=== PATIENT | male | born 1960 | race Caucasian/White ===

== ENCOUNTER 2021-04-02 16:51 | Emergency (ER) | payer OTHER, SELFPAY ==
[2021-04-02] VITALS (7 sets, daily range): BP systolic 122–131; BP diastolic 64–76; PULSE 70–95; RESP 17–20; TEMP 36.4; O2SAT 92–95; BMI 29.0
--- NOTE | 2021-04-02 17:01 | EKG12_ITS ---
Test Reason : CP Blood Pressure : / mmHG Vent. Rate : 090 BPM Atrial Rate : 090 BPM P-R Int : 140 ms QRS Dur : 098 ms QT Int : 348 ms P-R-T Axes : 029 086 034 degrees QTc Int : 425 ms Normal sinus rhythm Inferior infarct , age undetermined , cannot be excluded Poor R wave progression Abnormal ECG Confirmed by TRAMAINE OLIVO, AYAH ([id number]), editor managing newspaper [employer] ([id number]) on 04/04/2021 1:24:27 PM Referred By: TAM Confirmed By:AYAH REDD MD
[2021-04-02 17:12] LABS: Absolute Lymphocyte Count 1.01 X10^3/uL (0.83-4.51); Absolute Neutrophil Count 6.3 X10^3/uL (2.0-7.7); Basophil# 0.05 X10^3/uL; Basophil% 0.6 % (0-1); Eosinophil# 0.09 X10^3/uL; Eosinophils% 1.1 % (0-5); Hematocrit 47.8 % (40-54); Hemoglobin 15.6 g/dL (13.0-16.5); Lymphocyte # 1.01 X10^3/ul (0.83-4.51); Lymphocyte % 11.9 % (19-41); Mean Corp Hgb Conc 32.6 g/dL (32-36); Mean Corpuscular Hgb 30.5 pg (27.0-32.0); Mean Corpuscular Volume 93.5 fL (80-94); Mean Platelet Vol. 9.3 fl (6.2-12.0); Monocyte# 0.92 X10^3/uL; Monocyte% 10.9 % (0-10); NRBC Flagged by Analyzer 0 % (0-5); Neutrophil # 6.33 X10^3/uL (2.7-7.7); Neutrophil % 74.7 % (47-70); Platelet Count 188 K/mm3 (150-450); RBC Distribution Width CV 13.8 % (11.6-14.6); Red Blood Count 5.11 M/mm3 (4.6-6.2); White Blood Count 8.5 K/mm3 (4.4-11.0)
--- NOTE | 2021-04-02 17:15 | RAD_ITS ---
STUDY: X-RAY CHEST REASON FOR EXAM: Male, 60 years old. chest pain TECHNIQUE: AP COMPARISON: None. FINDINGS: There are interstitial fibrotic changes of the lung bases. No airspace consolidation. There is no demonstrated pleural abnormality. Normal size heart. Normal mediastinum and jil. Normal visualized pulmonary arteries. There is atherosclerotic calcification of the aortic arch with tortuosity. No acute bony process. There is no demonstrated abnormality of the visualized soft tissue structures of the upper abdomen. RAD/Chest 1 View (Portable) IMPRESSION: Nonacute portable x-ray examination of the chest. Electronically Signed: Griffin Chopra MD ([place]) at 17:25 EDT , Service support ,
[2021-04-02 17:29] LABS: Anion Gap 6 (5-15); BUN 20 mg/dL (7-18); Calcium,Total 9.3 mg/dL (8.5-10.1); Chloride 105 mmol/L (98-107); Creatinine, Serum 1.11 mg/dL (0.70-1.30); EST Glomerular Filtration Rate 71 mL/min (>60); Est Glom Filt Rate - Afr Amer 86 mL/min (>60); Estimated Creatinine Clearance 63.07 ml/min; Glucose 177 mg/dL (74-106); Potassium 3.6 mmol/L (3.5-5.1); Sodium Level 135 mmol/L (136-145); Troponin-I HS 6 pg/mL (3.0-78.0)
[2021-04-02] MEDS: Morphine 4 MG/ML Syringe IV (19:03)
[2021-04-02] MEDS: Ondansetron 4 MG/2 ML Vial IV (19:04)
[2021-04-02 19:16] LABS: D-Dimer Quantitative (DVT/PE) 0.91 FEU/ug/m (0.27-0.49)
--- NOTE | 2021-04-02 19:19 | CT_ITS ---
STUDY: CTA CHEST REASON FOR EXAM: Male, 60 years old. Left-sided chest pain for last 18 hours, worse with deep inspiration RADIATION DOSAGE (If Supplied By Facility): CTDIvol = ( 10.30 ) mGy, DLP = ( 443.43 ) mGycm TECHNIQUE: The examination was performed with the intravenous administration of IV 100mL Isovue-300. Post-processing of the angiographic images was performed, with multiplanar reformation and 3D reconstruction. Individualized dose optimization techniques were used for this CT. COMPARISON: None. FINDINGS: Normal enhancement of the main pulmonary artery and right and left pulmonary arteries. Normal enhancement of the bilateral peripheral pulmonary arteries. There is no demonstrated pulmonary embolism. Mild atherosclerosis of the thoracic arch. There is no demonstrated aortic dissection. Normal heart and pericardium. Normal mediastinum. Normal hilar regions. Normal visualized trachea and bronchi. The lungs are well expanded. Peripheral subpleural linear fibrosis of the bilateral upper lobes and lower lobes. Mild bronchiectasis. 3.7 mm subpleural noncalcified nodule in the right lower lobe on image 109 of series 2. Fleischner Society Guidelines (MacMahon, et al. Radiology 2017; 284(1):228-43) recommend a follow-up chest CT in 6-12 months in patients with a low or high risk of malignancy. Normal pleura. Normal chest wall structures. There are degenerative changes of thoracic spine. Gallstones in the gallbladder. Thickening of the bilateral adrenal glands without focal, discrete nodule. CT/CTA Chest W/WO Contrast IMPRESSION: No central or segmental pulmonary embolism. Electronically Signed: Griffin Chopra MD ([place]) at 20:19 EDT , Service support ,
[2021-04-02 19:21] LABS: Troponin-I HS 7 pg/mL (3.0-78.0)
[2021-04-02] MEDS: HYDROmorphone 0.5 MG/0.5 ML SYRINGE IV (20:04)
[2021-04-02] MEDS: Ketorolac 15 MG/ML Vial IV (22:00)
[2021-04-02] MEDS: Lidocaine 5% Patch 1 PATCH TOPICAL (22:00)
--- NOTE | 2021-04-02 22:12 | EDS_ITS ---
HPI History of Present Illness Chief Complaint: Chest Pain Narrative Narrative: 60-year-old male with history of diabetes presenting with left-sided chest pain which he describes as sharp. Its been intermittent since yesterday. He denies any known injury. He states it is worse with deep inspiration. He also describes it as painful with laying supine. It does seem to be worse with movement. He denies any fever or cough. He denies cardiac history. He has a distant stress test which was normal. Patient does have recent travel to [place]. He denies any calf pain or swelling. He is not had history of DVT/PE. He is not short of breath. [facility] Medical History DM II (diabetes mellitus, type II), controlled Femur fracture HTN (hypertension) Home Medications empagliflozin [Jardiance] 25 mg PO DAILY 04/02/21 [History Last Taken Unknown] glimepiride 4 mg PO DAILY 04/02/21 [History Last Taken Unknown] lisinopril 5 mg PO DAILY 04/02/21 [History Last Taken Unknown] pioglitazone 45 mg PO DAILY 04/02/21 [History Last Taken Unknown] sitagliptin-metformin [Janumet] 1 tab PO BID 04/02/21 [History Last Taken Unknown] Allergy/AdvReac Type Severity Reaction Status Date / Time No Known Allergies Allergy Verified 04/02/21 16:54 Surgical History Hx of hernia repair Social History Smoking Status: Never smoker [facility] ED Constitutional Constitutional ED: Denies chills or fever(s) Eyes Eyes: Denies blurry vision or change in vision ENT ENT ED: Denies rhinorrhea or sore throat Cardiovascular Cardiovascular: Reports chest pain; Denies palpitations Respiratory/Chest Respiratory/Chest: Denies cough, dyspnea or sputum Gastrointestinal Gastrointestinal: Denies abdominal pain, nausea or vomiting Genitourinary Genitourinary ED: Denies dysuria or hematuria Musculoskeletal Musculoskeletal: Denies arthralgias or myalgias Integumentary Denies Abrasions or rash Neurologic Neurologic: Denies headache(s) or paresthesias EXAM Physical Exam Const Vital Signs: 04/02/21 16:52 04/02/21 17:44 04/02/21 17:48 Temperature 97.6 F L Temperature Source Temporal Pulse Rate 95 Respiratory Rate 18 Respiratory Effort Normal Non-Labored Blood Pressure 122/66 H Blood Pressure Mean 84 Pulse Ox 95 95 Oxygen Delivery Method Room Air 04/02/21 18:00 04/02/21 19:09 04/02/21 20:00 Temperature Temperature Source Pulse Rate 79 70 82 Respiratory Rate 20 H 17 18 Respiratory Effort Blood Pressure 126/67 H 131/75 H 128/64 H Blood Pressure Mean 86 93 85 Pulse Ox 93 95 94 Oxygen Delivery Method Room Air Room Air Room Air Positive well nourished General Appearance ED: NAD HEENT Reports moist mucous membranes normocephalic and atraumatic Eyes PERRL and EOMs intact bilaterally Chest Wall inspection of chest normal and palpation of chest normal Resp normal respiratory effort and clear to auscultation bilaterally Effort and Inspection: respiratory distress Cardio regular rate and regular rhythm GI normal to inspection, nondistended, normoactive bowel sounds Extremity normal to inspection General Extremety ED: Negative for tenderness Neuro oriented x3 Sensorium / Orientation: awake and alert Psych mental status grossly normal Skin no rashes or lesions noted Heart Score History: Slightly/Non-Suspicious ECG: Normal Age: >45 - <65 years Risk Factors: 1 or 2 Risk Factors Score: 2 MDM MDM MDM Narrative Medical decision making narrative: Patient history of diabetes and smoking presenting with left-sided chest pain which is sharp in nature. EKG on my interpretation shows a normal sinus rhythm with a ventricular rate of 90 bpm without sign of ischemic change. Chest x-ray shows no acute cardiopulmonary process on my interpretation and the radiologist does agree. Patient CBC is within normal limits BNP is normal. Initial troponin is 6 and follow-up delta troponin is 7. D-dimer was elevated at 0.91. Patient had CTA of the chest which does not identify PE but does identify a pulmonary nodule in the right lung and some pulmonary fibrosis. The pulmonary nodules on the right side of the chest and his pain is on the left so I do not believe this correlates. Patient was given morphine 4 mg followed by Dilaudid 0.5 mg. He states he is not having significant interval pain relief. He is given lidocaine patch and Toradol. Patient is counseled that ultimately his work-up is negative from a cardiac standpoint and he does not appear to be any acute findings on his CTA of the chest although he does need to follow-up for the pulmonary nodules. The CTA does identify some adrenal thickening which is nonspecific but he is counseled to follow-up with us as well. I do not believe the patient needs to be hospitalized at this time given his negative work-up. He is given instructions to follow-up outpatient with his primary care physician. Impression: 1. Chest pain 2. Adrenal thickening 3. Pulmonary nodule Lab Data Labs: Laboratory Results - last 24 hr 04/02/21 04/02/21 04/02/21 17:05 17:05 19:00 WBC 8.5 RBC 5.11 Hgb 15.6 Hct 47.8 MCV 93.5 MCH 30.5 MCHC 32.6 RDW Std Deviation 48.0 H RDW Coeff of Rahel 13.8 Plt Count 188 MPV 9.3 Immature Gran % (Auto) 0.800 Neut % (Auto) 74.7 H Lymph % (Auto) 11.9 L [place] % (Auto) 10.9 H Eos % (Auto) 1.1 Baso % (Auto) 0.6 Absolute Neuts (auto) 6.3 Absolute Lymphs (auto) 1.01 Nucleated RBC % 0 D-Dimer Quant (PE/DVT) Sodium 135 L Potassium 3.6 Chloride 105 Carbon Dioxide 24.0 Anion Gap 6 BUN 20 H Creatinine 1.11 Estim Creat Clear Calc 63.07 Est GFR (MDRD) Af Amer 86 Est GFR (MDRD) Non-Af 71 BUN/Creatinine Ratio 18.0 Glucose 177 H Calcium 9.3 Troponin I High Sens 6 7 04/02/21 19:00 WBC RBC Hgb Hct MCV MCH MCHC RDW Std Deviation RDW Coeff of Rahel Plt Count MPV Immature Gran % (Auto) Neut % (Auto) Lymph % (Auto) [place] % (Auto) Eos % (Auto) Baso % (Auto) Absolute Neuts (auto) Absolute Lymphs (auto) Nucleated RBC % D-Dimer Quant (PE/DVT) 0.91 H* Sodium Potassium Chloride Carbon Dioxide Anion Gap BUN Creatinine Estim Creat Clear Calc Est GFR (MDRD) Af Amer Est GFR (MDRD) Non-Af BUN/Creatinine Ratio Glucose Calcium Troponin I High Sens Radiography Diagnostic Testing: Radiology Impression Chest X-Ray 04/02/21 17:15 IMPRESSION: Nonacute portable x-ray examination of the chest. Electronically Signed: Griffin Chopra MD ([place]) at 17:25 EDT , Service support , Chest CTA 04/02/21 19:19 IMPRESSION: No central or segmental pulmonary embolism. Electronically Signed: Griffin Chopra MD ([place]) at 20:19 EDT , Service support , Discharge Plan Triage Chief Complaint: Chest Pain ED Provider: Lon Shah Dx/Rx/DC Orders Instructions: Pulmonary Fibrosis, ED Chest Pain, Noncardiac, ED Pulmonary Nodule, Solitary Prescriptions: No Action pioglitazone 45 mg Tablet 45 mg PO DAILY RF: 0 glimepiride 4 mg Tablet 4 mg PO DAILY RF: 0 lisinopril 5 mg Tablet 5 mg PO DAILY RF: 0 Janumet 50-1,000 mg Tablet 1 tab PO BID RF: 0 Jardiance 25 mg Tablet 25 mg PO DAILY RF: 0 Primary Care Provider: Chino Rodriguez Referrals: Chino Rodriguez MD [Primary Care Provider] - Disposition Disposition: Home, Self Care Discharge Date/Time: 04/02/21 22:16
== END 2021-04-02 22:16 | disposition home or self-care (01) ==
PROVIDERS: Emergency Provider Student in an Organized Health Care Education/Training Program; PCP Family Medicine
DX: R07.89 Other chest pain (principal); R91.1 Solitary pulmonary nodule; E11.9 Type 2 diabetes mellitus without complications; I10 Essential (primary) hypertension; Z79.84 Long term (current) use of oral hypoglycemic drugs; Z79.899 Other long term (current) drug therapy
CPT/HCPCS: 71045; 71275; 80048; 84484; 85025; 85379; 93005; 96374; 96375; 99285; Q9967; A4216; J2405